=== PATIENT | female | born 1975 | race Two or more races ===

== ENCOUNTER 2021-09-20 16:45 | Emergency (ER) | payer BC ==
[~2021-09-20] VITALS: Ht 162.6 cm; Wt 81.6 kg
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
--- NOTE | 2021-09-20 17:08 | NUR ---
ARMEN SAM AT FOR STEFAN.
[2021-09-20] MEDS ORDERED: CYCLOBENZAPRINE 10 MG TABLET ONE (17:28)
[2021-09-20] MEDS ORDERED: IBUPROFEN 400 MG TABLET ONE (17:28)
[2021-09-20] MEDS ORDERED: CYCLOBENZAPRINE 10 MG TABLET PO ONE (17:30)
[2021-09-20] MEDS ORDERED: IBUPROFEN 400 MG TABLET PO ONE (17:30)
[2021-09-20] MEDS ORDERED: IBUP-1955 PO (18:21)
[2021-09-20] MEDS ORDERED: CYCL5TAB PO (18:21)
[2021-09-20 19:02] VITALS: BP 107/73
== END 2021-09-20 18:45 | disposition home or self-care (01) ==
LOC: ER 16:47
DX: S16.1XXA Strain of muscle, fascia and tendon at neck level, initial encounter (principal); Z79.899 Other long term (current) drug therapy; V89.2XXA Person injured in unspecified motor-vehicle accident, traffic, initial encounter; Y93.89 Activity, other specified; Y92.89 Other specified places as the place of occurrence of the external cause; Y99.8 Other external cause status
CPT/HCPCS: 71045-TC; 72050-TC

== ENCOUNTER 2023-10-27 20:49 | Emergency (ER) | payer SELFPAY ==
[~2023-10-27] VITALS: Ht 162.6 cm; Wt 68.0 kg
[~2023-10-27 20:49] MED LIST: CYCL5TAB PO; IBUP-1955 PO
[2023-10-27 22:26] VITALS: BP 118/74; TEMP 98; O2SAT 99
== END 2023-10-27 22:57 | disposition home or self-care (01) ==
LOC: ER 21:01
DX: L76.82 Other postprocedural complications of skin and subcutaneous tissue (principal); R60.0 Localized edema; Y83.8 Other surgical procedures as the cause of abnormal reaction of the patient, or of later complication, without mention of misadventure at the time of the procedure; Y82.8 Other medical devices associated with adverse incidents